=== PATIENT | male | born 1970 | race Caucasian/White ===

== ENCOUNTER 2023-11-16 00:58 | Day surgery (SDC) | payer BC, SELFPAY ==
[2023-11-01 15:48] VITALS: BMI 36.1
[2023-11-16 06:33] VITALS: BP 126/86; PULSE 66; RESP 18; TEMP 36; O2SAT 99; BMI 34.0
--- NOTE | 2023-11-16 06:48 | WPDANESEPPF ---
Anes - Initial Pre Proc Eval Procedure: Operation Date: 11/16/23 08:00 Proposed Procedures p Esophagogastroduodenoscopy & Colonoscopy - Hemant Bustos MD Date/Time: 11/16/23 06:48 Surgeon: Hemant Bustos MD Pre Op Diagnosis: N&V, Hx. colon polyps Patient Data Age: 53 Gender: M Height: 1.7 m Weight: 98.6 kg Last Vital Signs Temp 96.8 F L 11/16/23 06:33 Pulse 66 11/16/23 06:33 Resp 18 11/16/23 06:33 BP 126/86 11/16/23 06:33 Pulse Ox 99 11/16/23 06:33 O2 Del Method Room Air 11/16/23 06:33 Allergies Allergy/AdvReac Type Severity Reaction Status Date / Time No Known Allergies Allergy Verified 11/16/23 06:40 Home Medications Medication Instructions Recorded Confirmed Type aspirin 81 mg tablet,delayed 81 mg PO DAILY 11/01/23 11/16/23 History release (Adult Low Dose Aspirin) atorvastatin 40 mg tablet 40 mg PO DAILY 11/01/23 11/16/23 History cholecalciferol (vitamin D3) 50 50 mcg PO DAILY 11/01/23 11/16/23 History mcg (2,000 unit) capsule dulaglutide 3 mg/0.5 mL 3 mg subcut WEEKLY 11/01/23 11/16/23 History subcutaneous pen injector (Trulicity) empagliflozin 25 mg tablet 25 mg PO DAILY 11/01/23 11/16/23 History (Jardiance) lisinopril 2.5 mg tablet 2.5 mg PO DAILY 11/01/23 11/16/23 History metformin 1,000 mg tablet 1,000 mg PO DAILY 11/01/23 11/16/23 History Patient hx anesthesia problems: none Family hx anesthesia problems: none Results Review: All pre-operative results and documents have been reviewed as part of the pre-operative evaluation. [facility] Social History Social History Smoking status: Never smoker Smokeless tobacco user: chewing tobacco Alcohol intake: never Substance use: never Substance use type: does not use Living arrangements: alone Spiritual care concerns: No Anes - Eval Final PreProcedure Day of Procedure 11/16/23 06:48 Patient weight: overweight Heart: regular rate and rhythm Lungs: clear to auscultation Airway: Mallampati scale and special considerations (Upper partial. ) Neurological: alert and oriented Last oral intake: >/= 8 hours ASA classification: III Emergent: no Anesthetic plan: proceed Anesthesia type and monitoring: general GIVS and standard monitoring Results Review: All pre-operative results and documents have been reviewed as part of the pre-operative evaluation. HTN, hyperlipidemia, DM (fsbs 159). Informed Consent: The patient's anesthetic plan and its attendant risks and benefits were discussed with the patient/family/POA. Questions were solicited and answers provided to the satisfaction of the patient/family/POA.
[2023-11-16] MEDS: LACTATED RINGERS 1,000 ML 150 ML IV CONT (06:57)
[2023-11-16 06:58] LABS: Glucose Point of Care 159 mg/dl (65-105)
--- NOTE | 2023-11-16 07:44 | PM.HPGS ---
History of Present Illness History of Present Illness Consent: Risks, benefits, and alternatives have been discussed and questions answered. Patient agrees to proceed with procedure. Chief complaint: N&V, Hx. colon polyps Narrative: Jesus Velez is a 53 year old male with h/o DM, intermittent nausea and h/o colon polyp ~ 8 years ago, here for egd and colonoscopy Review of Systems Review of Systems: All systems reviewed & are unremarkable except as noted in HPI and below PMFSH Past Medical History Medical History (Updated 11/16/23 @ 07:46 by Hemant Bustos MD) Colon polyp Nausea Social History Social History Smoking status: Never smoker Smokeless tobacco user: chewing tobacco Alcohol intake: never Substance use: never Substance use type: does not use Living arrangements: alone Spiritual care concerns: No Meds Home Medications and Allergies Home Medications Medication Instructions Recorded Confirmed Type aspirin 81 mg tablet,delayed 81 mg PO DAILY 11/01/23 11/16/23 History release (Adult Low Dose Aspirin) atorvastatin 40 mg tablet 40 mg PO DAILY 11/01/23 11/16/23 History cholecalciferol (vitamin D3) 50 50 mcg PO DAILY 11/01/23 11/16/23 History mcg (2,000 unit) capsule dulaglutide 3 mg/0.5 mL 3 mg subcut WEEKLY 11/01/23 11/16/23 History subcutaneous pen injector (Trulicity) empagliflozin 25 mg tablet 25 mg PO DAILY 11/01/23 11/16/23 History (Jardiance) lisinopril 2.5 mg tablet 2.5 mg PO DAILY 11/01/23 11/16/23 History metformin 1,000 mg tablet 1,000 mg PO DAILY 11/01/23 11/16/23 History Allergies Allergy/AdvReac Type Severity Reaction Status Date / Time No Known Allergies Allergy Verified 11/16/23 06:40 Vital Signs Vital Signs - 24 hr 11/16/23 06:33 Temperature 96.8 F L Pulse Rate 66 Respiratory Rate 18 Blood Pressure 126/86 Pulse Oximetry 99 Oxygen Delivery Room Air Exam Const: General: comfortable and no acute distress HENMT: Face/Nose/Sinus: Normal nares present Eyes: General: appearance normal, both eyes and all related structures Neck: Neck: no JVD Resp: Auscultation: clear to auscultation bilaterally Cardio: Rate: regular rate Rhythm: regular rhythm GI: Inspection: non-distended GI Palp: Yes Soft to palpation Skin: General skin exam: normal color Neuro: General: gait normal Speech: normal speech Extrem: General: normal to inspection Psych: Mental Status: mental status grossly normal Assessment and Plan Assessment and plan (1) Colon polyp: Code(s): K63.5 - Polyp of colon Status: Acute Assessment and Plan: colonoscopy (2) Nausea: Code(s): R11.0 - Nausea Status: Acute Assessment and Plan: egd
[2023-11-16] MEDS: BENZOCAINE (*SP) 60 ML SPRAY CAN (HURRICAINE) 1 SPRAY MUCOUS MEM (07:51)
--- NOTE | 2023-11-16 08:03 | SUR.OPER ---
EGD end time: 756, Colon start time: 802
[2023-11-16 08:17] VITALS: BP 95/64; PULSE 83; RESP 15; O2SAT 94
[2023-11-16 08:27] VITALS: BP 103/74; PULSE 76; RESP 18; O2SAT 98
[2023-11-16 08:37] VITALS: BP 112/81; PULSE 74; RESP 18; O2SAT 99
== END 2023-11-16 08:50 | disposition home or self-care (01) ==
PROVIDERS: PCP Emergency Medicine; Visit Provider Internal Medicine Gastroenterology
PROC: 0DJ08ZZ Inspection of Upper Intestinal Tract, Via Natural or Artificial Opening Endoscopic (ICD-10-PCS; CPT 43235; principal; 2023-11-16 08:00)
DX: Z12.11 Encounter for screening for malignant neoplasm of colon (principal); K22.70 Barrett's esophagus without dysplasia; K64.8 Other hemorrhoids; K57.30 Diverticulosis of large intestine without perforation or abscess without bleeding; F17.220 Nicotine dependence, chewing tobacco, uncomplicated; Z79.82 Long term (current) use of aspirin; Z79.85 Long-term (current) use of injectable non-insulin antidiabetic drugs; Z79.84 Long term (current) use of oral hypoglycemic drugs; Z86.010 Personal history of colon polyps
CPT/HCPCS: 43239; 45378; 82948; 88305; J2704; J7120